=== PATIENT | male | born 1965 | race African-American/Black ===

== ENCOUNTER → 2023-09-07 | Emergency (ER) | payer MEDICAID ==
[~2023-09-07] VITALS: Ht 180.3 cm; Wt 90.0 kg
[2023-09-07 09:45] VITALS: BP 181/119; RESP 20; TEMP 97.9; O2SAT 98
[2023-09-07 09:54] VITALS: PULSE 68
== END ==
LOC: ER 09:38
DX: L02.511 Cutaneous abscess of right hand (principal); Z98.890 Other specified postprocedural states
CPT/HCPCS: 73130; 99283

== ENCOUNTER 2024-12-31 12:34 | Emergency (ER) | payer MEDICAID ==
[~2024-12-31] VITALS: Ht 185.4 cm; Wt 105.0 kg
[2024-12-31 12:39] VITALS: O2SAT 100
[2024-12-31 12:50] VITALS: BP 172/101; PULSE 62; RESP 18; TEMP 36.7; O2SAT 99
== END 2024-12-31 13:04 | disposition home or self-care (01) ==
LOC: ER 12:34
DX: S01.91XD Laceration without foreign body of unspecified part of head, subsequent encounter (principal); Z98.890 Other specified postprocedural states; X58.XXXD Exposure to other specified factors, subsequent encounter
CPT/HCPCS: 99282